=== PATIENT | female | born 1995 ===

== ENCOUNTER 2024-08-24 | Outpatient (REF) | payer OTHER, SELFPAY ==
[2024-08-25 12:43] LABS: Bacterial Vaginosis PCR POSITIVE (Negative); Candida Group PCR NOT DETECTED (Not Detect); Candida glab krusei PCR NOT DETECTED (Not Detect); Trichomonas vaginalis PCR NOT DETECTED (Not Detect)
[2024-08-25 13:15] LABS: CT PCR NOT DETECTED (Not Detect.); NG PCR NOT DETECTED (Not Detect.)
== END 2024-08-24 00:01 | disposition home or self-care (01) ==
LOC: HO.LNP
PROVIDERS: Visit Provider Physician Assistant Medical
DX: N89.8 Other specified noninflammatory disorders of vagina (principal)
CPT/HCPCS: 0352U; 87491; 87591

== ENCOUNTER 2024-08-24 15:46 | Outpatient (REF) | payer OTHER, SELFPAY | END 2024-08-24 15:47 | disposition home or self-care (01) | LOC: HO.LAB 15:46 | DX: N89.8 Other specified noninflammatory disorders of vagina (principal) | CPT/HCPCS: 99202 ==

== ENCOUNTER → 2024-08-24 15:46 | Outpatient (AMB) | payer OTHER, SELFPAY ==
--- NOTE | 2024-08-24 15:51 | AM.OFFWIN_ITS ---
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 Patient Tobacco Use Status: Never used Tobacco Allergies guaifenesin [From Robitussin] Adverse Reaction (Mild, Verified 08/24/24 15:55) Hives Do you need a note to return to daycare/school/sports/work: No HPI HPI Comments History of Present Illness Details This is a 29-year-old female who presented to the walk-in clinic complaining of vaginal discharge and vaginal odor. Patient states this has been going on for several days. She states the vaginal discharge as occasionally white but occasionally yellow to green. She reports her discharge and her vagina are malodorous. Patient is sexually active. She denies any abdominal/pelvic pain, nausea/vomiting/diarrhea, dysuria/hematuria, or urinary frequency/urgency. FOR[facility]LY [facility] Social History Patient Tobacco Use Status: Never used Tobacco Review of Systems Const All systems reviewed & are unremarkable except as noted in HPI and below Reports no additional complaints Eyes Reports no additional complaints ENT Reports no additional complaints Card Reports no additional complaints Resp Reports no additional complaints GI Reports no additional complaints Reports no additional complaints Musc Reports no additional complaints Skin/Breast Reports system reviewed and no additional complaints, except as documented Neuro Reports no additional complaints Psych Reports no additional complaints Endo Reports no additional complaints [place]/Lymph Reports no additional complaints Aller/Immun Reports no additional complaints Physical Exam Const Other: Vital signs reviewed. Constitutional: Non-toxic appearing. No acute distress. Well-developed and well-nourished. HEENT: Normocephalic and atraumatic. Skin: Warm and dry. No rashes or lesions noted. Neck: Full and painless range of motion. No cervical lymphadenopathy. Cardio: Regular rate. No lower extremity edema. No JVD. Pulmonary: No respiratory distress. No accessory muscle usage. Gastrointestinal: Soft, nontender, and nondistended in all 4 quadrants. Musculoskeletal: Normal range of motion in joints throughout the body. No deformity or other signs of injury. Neuro: Alert and oriented x4. Cranial nerves 2-12 grossly intact. No focal deficits appreciated. Psych: Normal mood and affect. Assessment & Plan Assessment & Plan (1) Vaginal discharge: Code(s): N89.8 - Other specified noninflammatory disorders of vagina Plan: 29-year-old female who presented to the walk-in clinic complaining of vaginal discharge and vaginal odor. History appears most consistent with bacterial vaginosis given malodorous discharge, less likely yeast infection given malodoro us discharge in absence of thick, cottage cheese like discharge. Patient has been sexually active with the same partner for the past 1 year; however, she did agree to chlamydia/gonorrhea testing given green-yellow discharge. A vaginal swab for bacterial vaginosis panel was sent and urine was sent for CT/NG. Patient will be called with the results and treated accordingly. Patient verbalized understanding and is agreeable with the plan. Orders: Orders Bacterial Vaginosis Panel Today N89.8 - Other specified noninflammatory disorders of vagina CT NG by PCR Today N89.8 - Other specified noninflammatory disorders of vagina Coding Level of Care Code New Pt Level 3 (58227) Diagnoses Vaginal discharge N89.8
[2024-08-24 15:53] VITALS: BP 118/80; PULSE 64; O2SAT 98; BMI 32.3
== END ==
PROVIDERS: Visit Provider Physician Assistant Medical
DX: N89.8 Other specified noninflammatory disorders of vagina (principal)

== ENCOUNTER 2024-10-23 14:32 | Outpatient (AMB) | payer OTHER, SELFPAY ==
[2024-10-23 14:42] VITALS: BP 100/60; TEMP 36.6; O2SAT 95; BMI 22.7
--- NOTE | 2024-10-23 14:42 | MHC.OFFWIV ---
Intake Vital Signs 10/23/24 14:42 Height 5 ft 4 in Weight 132 lb BMI 22.7 BP 100/60 Blood Pressure Location Rt brachial Position Sitting Temp 98 F Temp Source Oral Pulse Oximetry (%) 95 Oxygen Delivery Method Room Air Intake Visit Reasons: EP concerns with pelvic area Intake Note: Pt is her today c/o vaginal foul odor and vaginal d/c Patient Tobacco Use Status: Never used Tobacco Allergies guaifenesin [From Robitussin] Adverse Reaction (Mild, Verified 10/23/24 14:43) Hives HPI HPI Comments History of Present Illness Details She presents to office with brandy for pelvic complaint She states vaginal odors and was given a medication; + BV and given Flagyl Took medicine completely and symptoms went away She presents because she feels like 1 week ago it started again She said minimal discharge with it; white No dysuria, frequency or urgency Denies chance of She uses a special soap in shower and unsure if this is causing it PFSH Social History Patient Tobacco Use Status: Never used Tobacco Review of Systems Const Denies chills and Denies fever(s) Card Denies chest pain Resp Denies cough GI Denies abdominal pain Denies dysuria, Reports vaginal discharge, Reports vaginal dryness, Reports vaginal odor and Denies vaginal pruritus Musc Denies myalgias Skin/Breast Denies rash Physical Exam Vital Signs: Last Vital Signs Temp 98 F 10/23/24 14:42 BP 100/60 10/23/24 14:42 Pulse Ox 95 10/23/24 14:42 Oxygen Delivery Method Room Air 10/23/24 14:42 BMI result Body Mass Index 22.7 General: Non-toxic, NAD. Speaking full sentences. Skin: Warm dry throughout. Respiratory: No respiratory distress Cardiac: RRR. No murmur Abdominal:No abdominal or CVAT on exam MSK: Full ROM extremities. Neurology: Alert. No aphasia or facial droop. Gait without abnormality Psych: Good mood and affect Assessment & Plan Assessment & Plan (1) Vaginal odor: Code(s): N89.8 - Other specified noninflammatory disorders of vagina Plan: Swab obtained and sent to lab She is in relationship and no concerns STD Will call with results and treat appropriately Pt gave verbal understanding and has no additional questions Orders: Orders Bacterial Vaginosis Panel Today N89.8 - Other specified noninflammatory disorders of vagina Coding Level of Care Code Est Pt Level 3 (46291) Diagnoses Vaginal odor N89.8
== END 2024-10-23 16:07 | disposition home or self-care (01) ==
PROVIDERS: Visit Provider Physician Assistant
DX: N89.8 Other specified noninflammatory disorders of vagina (principal)

== ENCOUNTER → 2024-10-23 14:32 | Outpatient (BNVA) | payer OTHER, SELFPAY | PROVIDERS: Visit Provider Physician Assistant | DX: N89.8 Other specified noninflammatory disorders of vagina (principal) | CPT/HCPCS: 99212 ==

== ENCOUNTER 2024-10-24 07:43 | Outpatient (REF) | payer OTHER, SELFPAY ==
[2024-10-24 11:36] LABS: Bacterial Vaginosis PCR POSITIVE (Negative); Candida Group PCR NOT DETECTED (Not Detect); Candida glab krusei PCR NOT DETECTED (Not Detect); Trichomonas vaginalis PCR NOT DETECTED (Not Detect)
== END 2024-10-24 07:44 | disposition home or self-care (01) ==
LOC: HO.LAB 07:43
PROVIDERS: Visit Provider Physician Assistant
DX: N89.8 Other specified noninflammatory disorders of vagina (principal)
CPT/HCPCS: 81515

== ENCOUNTER 2025-08-29 06:14 | Outpatient (REF) | payer OTHER, SELFPAY ==
--- OUTSIDE RECORDS SUMMARY | 2025-08-29 06:20 | XMS_ITS | Clinical Summary ---
Author Organization [facility] Address [address] [facility] [place] [address] Care Team Providers Care Eye Care Professional Name Role Phone Geraldine Mattue MD Primary Care Provider [phone] Allergies Active Allergy Reactions Criticality Noted Date Comments [place] Hives Medium 12/14/2015 Black olives Guaifenesin Rash 01/11/2014 Medications ethynodiol-ethinyl estradiol (KELNOR) 1-35 mg-mcg TabletIndications:E ncounter for initial prescription of contraceptives Take 1 tablet by mouth daily. 90 tablet 1 7 Active cholecalciferol, Vitamin D3, (CHOLECALCIFEROL, VITAMIN D3,) 2,000 unit Capsule Take by mouth. 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 First seizure was in 2005 and last was in 2006. Patient has been off anticonvulsants since the fall of 2008. 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 Last seen by Dr.Kossak velez 2011 Per pt thinks it was stress related while she was in [place] and has been doing well ANGELICA Lisa at neurology 02/22/2017- normal EEG and MRI of the brain- d/c ; f/u prn Resolved Problems Problem Noted Date Diagnosed Date Resolved Date Constipation 04/04/2012 02/02/2016 Orthostatic syncope 02/01/2012 02/02/20 16 constipation 10/28/2009 04/04/2012 Immunizations Immunization Administration Dates Next Due DTP 08/17/1995, 5,1994,07/14 DTaP 05/29/1999 HIB PRP-T Conjugate (ActHIB, Hiberix, OmniHib) 08/17/1995,1994,1994,07/14 HPV, Quadrivalent (Gardasil) 01/20/2012,09/21/20 11,07/20/2011 Hepatitis B, Unspecified Formulation 11/1994,1994,1994,06/02,1994 MMR Vaccine LIVE 05/29/1999,08/17/1995 Meningococcal Acwy, Unspecif ied Formulation 07/20/2011,09/11/2007 Polio Oral Trivalent LIVE (Orimune) 05/17,1994,1994,07/14 Tdap (Adacel, Boostrix) 02/02/2016,05/24/2006 Varicella LIVE (Varivax) 07/20/2011,06/07/2005 Family History Medical History Relation Comments Hyperlipidemia Brother Hyperlipidemia Maternal Grandmother Hypertension Maternal Grandmother Migraines Maternal Grandmother Anemia Mother Migraines Paternal Grandmother Relation Status Comments Brother Father Alive Maternal Grandmother Mother Alive Paternal Grandmother Social History Tobacco Use Types Packs/Day Years Used Date Smoking Tobacco: Never Alcohol Use Standard Drinks/Week Comments Yes 0 (1 standard drink = 0.6 oz pur e alcohol) occ Comments No Sex and Gender Information Value Date Recorded Sex Assigned at Not on file Legal Sex Female 6:23 AM EST Gender Identity Not on file Sexual Orientation Not on file Last Filed Vital Signs Vital Sign Reading Time Taken Comments Blood Pressure 108/68 02/22/2017 8:50 AM EDT Pulse 72 02/22/2017 8:50 AM EDT Temperature 36.5 C (97.7 F) 12/05/2016 3:23 PM EST Respiratory Rate 16 01/03/2012 3:21 PM EDT Oxygen Saturation 94% 12/05/2016 3:23 PM EST Inhaled Oxygen Concentration - - Weight 54 kg (119 lb) 02/22/2017 8:50 AM EDT Height 162.6 cm (5' 4 ) 02/22/2017 8:50 AM EDT Body Mass Index 20.43 02/22/2017 8:50 AM EDT Plan of Treatment Health Maintenance Due Date Last Done Comments HPV test 2024 PAP Smear 2024 02/02/2016 Covid-19 Vaccine (1 - 2024-2 6 season) 2025 Influenza (Flu) vaccine (1 o f 1 - Influenza standard series) 06/17/2025 Tetanus/Diphtheria/Pertussis Vaccines (8 - Td or Tdap) 02/01/2026 02/02/2016, 05/24/2006, 05/29/1999, Additional history exists Hepatitis B vaccine (0-59 yr s) and Risk Completed 03/18/1995, 1994, 1994, Additional history exists HPV vaccine Completed 01/20/2012, 120 03/2011, 07/20/2011 HIV screen Completed 02/24/2016 Hepatitis C Screening Completed 02/24/2016 Procedures Procedure Name Priority Date/Time Associated Diagnosis Comments HIV SCREEN, 4TH GENERATION PERFORMABLE Routine 02/24/2016 12:15 PM EDT Preventative health care Routine screening for STI (sexually transmitted infection) HEPATITIS C ANTIBODY Routine 02/24/2016 12:15 PM EDT Preventative health care Routine screening for STI (sexually transmitted infection) MUNICIPAL SERVICES MANAGER CYTOLOGY FINAL REPORT Routine 02/02/2016 10:48 AM EDT from Last 3 Months or Most Recently Relevant to Health Maintenance Results * Hepatitis C Antibody (02/24/2016 12:15 PM EDT) Hepatitis C Antibody Negative Negative [facility] Blood specimen (specimen) 02/24/2016 12:15 PM EDT 02/24/2016 7:26 PM EDT Narrative Resulting Agency Comment Spec In Lab Geraldine Matute MD CHEMISTRY ORDERABLES Final Re sult Performing Organization Address [facility] Co de Phone Number [facility] [place] [address] * HIV Screen, 4th Generation (02/24/2016 12:15 PM EDT) HIV Ab/Ag Screen Negative Negative [facility] Comment: This 4th Generation HIV test screens for the presence of the HIV-1 p24 antigen as well as antibodies reactive against HIV-1 and HIV-2. A negative screen does not rule out an acute HIV infection. If acute HIV infection is suspected, testing should be repeated in 2 - 3 weeks or HIV nucleic acid testing performed. Blood specimen (specimen) 02/24/2016 12:15 PM EDT 02/24/2016 7:26 PM EDT Narrative Resulting Agency Comment Spec In Lab Geraldine Matute MD CHEMISTRY ORDERABLES Final Re sult Performing Organization Address [facility] Co de Phone Number [facility] [place] [address] * Photogrammetric Surveyor Cytology Final Report (02/02/2016 10:48 AM EDT) Photogrammetric Surveyor Cytology Final Report [id number] Location: [facility] The signing pathologist has (i) examined the relevant preparation(s) for the specimen(s) and (ii) rendered or confirmed the diagnosis(es). . Photogrammetric Surveyor Final DIAGNOSIS NORMAL Negative for Intraepithelial Lesion or Malignancy (NILM). 02/07/16 Screened by: SPEEDY 02/07/16 Verified by: Randy FLORES(ASCP), Tracy Fisher Hospitalist Nocturnist Physician HPV RESULTS Not applicable (HPV testing either not indicated or ordered). STATEMENT OF ADEQUACY Specimen submitted is satisfactory. Endocervical component present. CLINICAL INFORMATION HPV Option: Reflex HPV Preparation: Liquid based Pap Specimen Source: Cervical/Endocervi afshin LMP: 01/12/16 Hormones?: No Hysterectomy?: No ?: No ?: No I.U.D.?: No Pelvic Radiation: No Prior MUNICIPAL SERVICES MANAGER Therapy?: No Hist Abnl Pap/Biopsy?: No Hist of HPV Vaccine?: Yes Hist of Smoking?: No Hist of LUCRETIA exposure?: No ICD Diagnosis: Z12.4 Encounter for screening for malignant neoplasm of cervix Clinical Data, Significant Therapy and Clinical Impression : _ This Pap Test has been evaluated with the assistance of the [employer] Pap Test Imaging System. Note: The Pap test is a screening test for cervical cancer with an inherent false-negative rate dependent upon several variables. For further information please contact the [facility] Laboratory. Reference: Raymond ANG. Patient Coordinator Front Desk of Pap Smear Results. In: Bryan BS, Bertram HH, ed. The Pap Smear. [place]: Juan, 2002: 71-77. [facility] 02/02/2016 10:4 8 AM EDT us Geraldine Matute MD PATHOLOGY/CYTOLOGY ORDERABLES Final Result [facility] [place] [address] from Last 3 Months or Most Recently Relevant to Health Maintenance Care Teams Eye Care Professional Relationship Specialty Start Date End Date Geraldine Matute MD [facility] [place] [facility] [place] [address] PCP - General Family Medicine 08/02/16
[2025-08-29 10:31] LABS: MANUAL DIFF FLAG NO
[2025-08-29 10:43] LABS: Hematocrit 42.8 % (37.0-47.0); Hemoglobin 14.5 g/dl (12.0-16.0); Imm Gran Abs Auto 0.01 X10*3/uL (0.00-0.03); Imm Gran Pct Auto 0.3 % (0.0-0.4); Lymphocytes Absolute Auto 1.4 X10*3/uL (1.2-4.9); Mean Corpuscular HGB Conc 33.9 g/dl (31.0-35.0); Mean Corpuscular Hemoglobin 31.3 pg (27.0-33.0); Mean Corpuscular Volume 92.4 fL (80.0-98.0); NRBC Abs Auto 0.000 X10*3/uL (0.0-0.012); NRBC Pct Auto 0.0 /100WBC (0.0-0.2); Platelet Count 234 X10*3/uL (160-400); Red Blood Count 4.63 X10*6/uL (4.20-5.50); White Blood Count 3.3 X10*3/uL (4.8-10.8)
[2025-08-29 11:58] LABS: Alanine Aminotransferase 22 U/L (0-31); Albumin Level 4.9 g/dL (3.5-5.0); Alkaline Phosphatase 57 U/L (39-117); Anion Gap 11 (12-20); Aspartate Amino Transferase 21 U/L (5-31); Blood Urea Nitrogen 11 mg/dL (9-16); Calcium 8.8 mg/dL (8.4-10.2); Carbon Dioxide 25 mmol/L (22-29); Chloride 105 mmol/L (96-108); Estimated Glomerular Filt Rate > 60; Potassium 4.2 mmol/L (3.3-5.1); Sodium 137 mmol/L (135-145); Total Protein 7.0 g/dL (6.5-8.0)
== END 2025-08-29 06:15 | disposition home or self-care (01) ==
LOC: HO.HMGCLDS 06:14
PROVIDERS: Visit Provider Psychiatry & Neurology Neurology
DX: Z51.81 Encounter for therapeutic drug level monitoring (principal); G40.211 Localization-related (focal) (partial) symptomatic epilepsy and epileptic syndromes with complex partial seizures, intractable, with status epilepticus
CPT/HCPCS: 36415; 80053; 80339; 82306; 85025

== ENCOUNTER 2025-09-10 15:47 | Outpatient (AMB) | payer OTHER, SELFPAY ==
[2025-09-10 15:50] VITALS: BP 112/74; PULSE 75; TEMP 36.8; O2SAT 96; BMI 22.5
--- NOTE | 2025-09-10 15:50 | AM.OFFWIN_ITS ---
Intake Vital Signs 09/10/25 15:50 Height 5 ft 4 in Weight 131 lb BMI 22.5 BP 112/74 Blood Pressure Location Lt brachial Position Sitting Pulse 75 Pulse Source Pulse Oximeter Temp 98.3 F Temp Source Oral Pulse Oximetry (%) 96 Oxygen Delivery Method Room Air Intake Visit Reasons: EP-lt ear pain Intake Note: pt presents with left ear discomfort on/off for a while, states she feels like something is stuck Patient Tobacco Use Status: Never used Tobacco Allergies guaifenesin (From Robitussin) Adverse Reaction (Mild, Verified 09/10/25 16:05) Hives Do you need a note to return to daycare/school/sports/work: Yes HPI HPI Comments History of Present Illness Details History - The patient is a 30 year old individua l presenting with left ear pain and discomfort. - The patient reports a throbbing sensat ion in the left ear, exacerbated by head movement and temperature changes. - The patient denies any discharge, pus, or blood from the ear. - The patient has a history of ear issue s, with the left ear sometimes feeling like it sinks in and out. - The patient denies any fever, congesti on, CP, SOB, MCKAY, dizziness, or cough. Physical Exam General: Cooperative, healthy appearing, comfortable, no acute distress and well developed Head: Normal to inspection Ears: External ears normal bilaterally. No tragus or mastoid tenderness noted. Cerumen noted in the right canal. Left ear canal is clear but significantly red. TM's not visualized. Face and sinus: Normal facial exam. No TTP of the sinuses. Neck: Normal visual inspection. Full ROM. No lymphadenopathy noted. Respiratory: Normal respiratory effort and able to speak in complete sentences. Clear to auscultation bilaterally. No w/r/r noted. Cardiac: RRR, no m/r/g noted. Normal S1 and S2 noted. Skin: No rashes or lesions noted Neuro: Patient oriented x3 Patient was informed and verbally consented to the use of an ambient scribe for clinic note documentation during this visit. PFSH Social History Patient Tobacco Use Status: Never used Tobacco Review of Systems Const All systems reviewed & are unremarkable except as noted in HPI and below Physical Exam Vital Signs: Last Vital Signs Temp 98.3 F 09/10/25 15:50 Pulse 75 09/10/25 15:50 BP 112/74 09/10/25 15:50 Pulse Ox 96 09/10/25 15:50 Oxygen Delivery Method Room Air 09/10/25 15:50 BMI result Body Mass Index 22.5 Assessment & Plan Assessment & Plan (1) Left ear pain: Code(s): H92.02 - Otalgia, left ear Plan Most likely OE vs OM vs congestion Plan - Prescribed ear drops containing an antibiotic and steroid to address potential inflammation in the left ear. - Advised to avoid water exposure in the ear and refrain from using Q-tips. - Recommended vpxz-[id number] analgesics such as Tylenol or Motrin for pain management. - Instructed to monitor symptoms and return if pain worsens or additional symptoms develop. Medications: New fmkcwxop-[id number]-RN 3.5-10,000-1 mg/mL-unit/mL-% 4 drps otic (ear) left QID 10 mL 0RF 7 days Coding Level of Care Code Est Pt Level 3 (77176) Diagnoses Left ear pain H92.02
--- OUTSIDE RECORDS SUMMARY | 2025-09-10 19:19 | XMS_ITS | Clinical Summary ---
Author Organization [facility] Address One [facility] [place] [address] Care Team Providers Care Computer Peripheral Equipment Operator Name Role Phone Geraldine Matute MD Primary Care Provider [phone] Allergies Active Allergy Reactions Criticality Noted Date Comments [place] Hives Medium 12/14/2015 Black olives Guaifenesin Rash [...] of 2008. 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 Last seen by Dr.Kossak velez 2011 Per pt thinks it was stress related while she was in [place] and has been doing well ANGELICA Lisa [...] Routine screening for STI (sexually transmitted infection) LEVEL VIAL GRINDER CYTOLOGY FINAL REPORT Routine 02/02/2016 10:48 AM EDT from Last 3 Months or Most Recently Relevant to Health Maintenance Results * Hepatitis C Antibody (02/24/2016 12:15 PM EDT) Hepatitis C Antibody Negative Negative [facility] Blood specimen (specimen) 02/24/2016 12:15 PM EDT 02/24/2016 7:26 PM EDT Narrative Resulting Agency Comment Spec In Lab Geraldine Matute MD CHEMISTRY ORDERABLES Final Re sult Performing Organization Address [facility] Co de Phone Number [facility] [place] [address] * HIV Screen, 4th Generation (02/24/2016 12:15 PM EDT) HIV Ab/Ag Screen Negative Negative [facility] Comment: This 4th Generation HIV [...] ORDERABLES Final Re sult Performing Organization Address [facility] Co de Phone Number [facility] [place] [address] * Supervisor Whipped Topping Cytology Final Report (02/02/2016 10:48 AM EDT) Supervisor Whipped Topping Cytology Final Report [id number] Location: [facility] The signing pathologist has (i) examined the relevant preparation(s) for the specimen(s) and (ii) rendered or confirmed the diagnosis(es). . Supervisor Whipped Topping Final DIAGNOSIS NORMAL Negative for Intraepithelial Lesion or Malignancy (NILM). 02/07/16 Screened by: SPEEDY 02/07/16 Verified by: Randy FLORES(ASCP), Tracy Fisher Commissioned Defence [employer] Officer HPV RESULTS Not applicable (HPV testing either not indicated or ordered). STATEMENT OF ADEQUACY Specimen submitted is satisfactory. Endocervical component present. CLINICAL INFORMATION HPV Option: Reflex HPV Preparation: Liquid based Pap Specimen Source: Cervical/Endocervi afshin LMP: 01/12/16 Hormones?: No Hysterectomy?: No ?: No ?: No I.U.D.?: No Pelvic Radiation: No Prior LEVEL VIAL GRINDER Therapy?: No Hist Abnl Pap/Biopsy?: No Hist of HPV Vaccine?: Yes Hist of Smoking?: No Hist of LUCRETIA exposure?: No ICD Diagnosis: Z12.4 Encounter for screening for malignant neoplasm of cervix Clinical Data, Significant Therapy and Clinical Impression : _ This Pap Test has been evaluated with the assistance of the [employer] Pap Test Imaging System. Note: The Pap test is a screening test for cervical cancer with an inherent false-negative rate dependent upon several variables. For further information please contact the [facility] Laboratory. Reference: Raymond ANG. Principal Gifts Officer of Pap Smear Results. In: Bryan BS, Bertram HH, ed. The Pap Smear. [place]: Juan, 2002: 71-77. [facility] 02/02/2016 10:4 8 AM EDT us Geraldine Matute MD PATHOLOGY/CYTOLOGY ORDERABLES Final Result [facility] [place] [address] from Last 3 Months or Most Recently Relevant to Health Maintenance Care Teams Computer Peripheral Equipment Operator Relationship Specialty Start Date End Date Geraldine Matute MD [facility] [place] [address] PCP - General Family Medicine 08/02/16
== END 2025-09-10 16:16 | disposition home or self-care (01) ==
PROVIDERS: Visit Provider Physician Assistant Medical
DX: H92.02 Otalgia, left ear (principal)

== ENCOUNTER 2025-10-16 12:54 | Outpatient (AMB) | payer OTHER, SELFPAY ==
--- NOTE | 2025-10-16 12:58 | A.OFFPC_ITS ---
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, med review Front Office Coordinator Required: No Accompanied by: fiance Allergies guaifenesin (From Robitussin) Adverse Reaction (Mild, Verified 10/16/25 13:01) Hives Medication List - Last Reconciled 10/16/25 by Maru Ghosh MD folic acid 1 mg PO DAILY oxcarbazepine 600 mg PO BID oxcarbazepine 150 mg PO BID Tobacco use date assessed: 10/16/25 Dental Screening Dental Screen Date: 10/16/25 Did you have a dental visit in the last 12 months?: Yes Did you have a dental problem in the last 6 months where you did not have access to dental care?: No Was dental information given to patient?: Patient has dentist HPI HPI Comments History of Present Illness Details The patient is a 30 year old female with PMH of epilepsy, presenting for establishment of primary care after recently moving from [place]. The patient has a history of epilepsy, which is managed by a neurologist in [place], [place]. Her medication regimen includes oxcarbazepine and folic acid. The last seizure activity occurred approximately 6 months ago, described as three minor seizures, which prompted an increase in her medication dosage by her neurologist. The patient has no personal history of surgeries, hypertension, or diabetes. She reports a significant fear of needles, with a history of hyperventilating during blood draws. The patient's family history is significant for ovarian cancer in her mother, maternal grandmother, and maternal great-grandmother. Her mother also had a history of possible leukemia years ago that required a blood transfusion. Diabet es and high blood pressure are present on her maternal grandmother's side of the family. [facility] Family History (Updated 10/16/25 @ 13:08 by Zayda Henry CMA) Mother Ovarian ca Social History Housing: House Patient Tobacco Use Status: Never used Tobacco e-Cigarette/Vaping Use: Never Used service: No Current occupational status: employed Current occupation: Inside Cognitive needs: No Hearing needs: No Vision needs: Yes (glasses) Questionnaire PHQ-9 Over the last 2 weeks, how often have you been bothered by any of the following problems? 1. Little interest or pleasure in doing things: not at all 2. Feeling down, depressed, or hopeless: not at all 3. Trouble falling or staying asleep, or sleeping too much: not at all 4. Feeling tired or having little energy: not at all 5. Poor appetite or overeating: not at all 6. Feeling bad about yourself - or that you are a failure or have let yourself or your family down: not at all 7. Trouble concentrating on things, such as reading the newspaper or watching television: not at all 8. Moving or speaking so slowly that other people could have noticed. Or the opposite - being so fidgety or restless that you have been moving around a lot more than usual: not at all 9. Thoughts that you would be better off or of hurting yourself in some way: not at all Total score: 0 Depression Screening Interpretation: Negative Depression Screening Done: Yes Source: Developed by Drs. Socrates Alvarado, Dominique Cunningham, Stephane Sherwood and colleagues, with an educational zarina from [employer]. Thrive Questionnaire Date Thrive assessed: 10/16/25 I am a: Patient What is your living situation today?: I have a steady place to live Within the past 12 months, did the food you bought not last and you didn't have the money to get more?: I choose not to answer this question Within the past 12 months, did you worry whether your food would run out before you got money to buy more?: I choose not to answer this question Do you have trouble paying for medicines?: No Do you have trouble getting transportation to medical appointments?: I choose not to answer this question Do you have trouble paying your heating and electricity bill?: I choose not to answer this question Do you have trouble taking care of your child, family member or friend?: I choose not to answer this question Do you have trouble with day-to-day activities such as bathing, preparing meals, shopping, managing finances, etc.?: I choose not to answer this question Are you currently unemployed and looking for a job?: No Are you interested in more education?: Yes Please select the resources that you would like help with: None Currently or been in a relationship where the following occur: I choose not to answer THRIVE Score: 0 AUDIT C Alcohol Use Questionnaire (AUDIT-C) 1. How often do you have a drink containing alcohol?: Never 3. How often do you have six or more drinks on one occasion?: Never Total Score: 0 BENJAMIN-7 AMB Questionnaire BENJAMIN-7 Date BENJAMIN - 7 assessed: 10/16/25 Feeling nervous, anxious, or on edge: 0 = Not at all Not being able to stop or control worryin = Not at all Worrying too much about different things: 0 = Not at all Trouble relaxin = Not at all Being so restless that it is hard to sit still: 0 = Not at all Becoming easily annoyed or irritable: 0 = Not at all Feeling afraid as if something awful might happen: 0 = Not at all Total BENJAMIN-7 score (0-4 normal; 5-9 mild; 10-14 moderate; 15-21 severe): 0 Source: Developed by Drs. Socrates Alvarado, Dominique Cunningham, Stephane Sherwood and colleagues, with an educational zarina from [employer]. Physical exam (Primary Care) Vital Signs: Last Vital Signs Temp 98.3 F 10/16/25 13:02 Pulse 87 10/16/25 13:02 Resp 16 10/16/25 13:02 BP 116/60 10/16/25 13:02 Pulse Ox 99 10/16/25 13:02 Oxygen Delivery Method Room Air 10/16/25 13:02 BMI result Body Mass Index 22.3 Tobacco/Smoking Status: Tobacco use Status Tobacco use date assessed 10/16/25 10/16/25 13:10 Patient Tobacco Use Status Never used Tobacco 10/16/25 12:58 e-Cigarette/Vaping Use Never Used 10/16/25 13:10 PHQ-9: PHQ-9 Score PHQ-9: Total score 0 10/16/25 13:10 Depression Screening Interpretation: Negative Thrive Assessment: Date of Thrive Assessment Date Thrive assessed 10/16/25 10/16/25 13:10 Currently or been in a relationship where the following occur: I choose not to answer Coding Level of Care Code New Pt Level 4 (56651) Diagnoses Encounter to establish care Z76.89 Epilepsy G40.909 Family history of ovarian cancer Z80.41 Time Spent (min) 30 Assessment & Plan Assessment & Plan (1) Encounter to establish care: Code(s): Z76.89 - Persons encountering health services in other specified circumstances Category: Medical Plan: Patient's Past, surgical, medical, family history was reviewed. General labs including CBC, CMP, Lipid panel, TSH, A1C were ordered. APRON MAN referral ordered. Medications refilled. Recent labs, imaging, documents, chart reviewed. - Rest of general health maintenance will be addressed during PE. (2) Epilepsy: Code(s): G40.909 - Epilepsy, unspecified, not intractable, without status epilepticus Category: Medical Plan: Follows with Neurology. Well controlled with Oxcarbamazepine. Last seizure around 6 months ago. - The patient will continue her current medications, oxcarbazepine and folic acid, as prescribed by her neurologist. - Management of her seizure disorder will remain with her neurologist. (3) Family history of ovarian cancer: Code(s): Z80.41 - Family history of malignant neoplasm of ovary Category: Medical Plan: - The patient's significant family history of ovarian cancer will be addressed through the referral to an [employer] WORKER for further evaluation and management discussion. Plan I welcomed the patient to the practice and outlined the plan for establishing care. I explained the rationale for ordering baseline laboratory studies, including a complete blood count, metabolic panel, A1c, lipid profile, thyroid function, vitamin D, hepatitis C, and HIV screening. The patient expressed a fear of needles, and I informed her that the labs can be drawn at her convenience, as long as it is done before the next visit. I advised that she should be fasting for some of the tests. I informed the patient that I will place a referral for her to see an [employer] WORKER. I explained that the clinic will call her with her lab results, regardless of whether they are normal or abnormal. We scheduled a follow-up appointment in two months, with a plan for annual follow-ups thereafter. Orders: Orders Comprehensive [place]. Panel Fast Today Z00.00 - Encounter for general adult medical examination without abnormal findings Hemoglobin A1c Today Z00.00 - Encounter for general adult medical examination without abnormal findings Complete Blood Count no Diff Today Z00.00 - Encounter for general adult medical examination without abnormal findings HIV Ab/Ag Today Z00.00 - Encounter for general adult medical examination without abnormal findings Hepatitis C Antibody Reflex Today Z.00 - Encounter for general adult medical examination without abnormal findings TSH reflex Free T4 Today Z. - Encounter for general adult medical examination without abnormal findings Vitamin D 25-OH Total Today Z00.00 - Encounter for general adult medical examination without abnormal findings Lipid Panel Today Z00.00 - Encounter for general adult medical examination without abnormal findings Referrals [facility] [employer] WORK[facility] Referral Z00.00 - Encounter for general adult medical examination without abnormal findings
[2025-10-16 13:02] VITALS: BP 116/60; PULSE 87; RESP 16; TEMP 36.8; O2SAT 99; BMI 22.3
--- OUTSIDE RECORDS SUMMARY | 2025-10-16 14:29 | XMS_ITS | Encounter Summary ---
Author Organization [facility] Address [address] [place] [address] Care Team Providers Care Concrete Spreader Name Role Phone Melissa Tirado MD Primary Care Provider [phone] Encounter Details Date Type Department Care Team (Late st Contact Info) Description 08/09/2025 Telephone [facility] Neurology at [address] Neurology at [address] [address] Mom, [place], [place] Social History Tobacco Use Types Packs/Day Years Used Date Smoking Tobacco: Never Smokeless Tobacco: Never Alcohol Use Standard Drinks/Week Comments Not Currently 0 (1 standard drink = 0.6 oz pur e alcohol) very rare AUDIT-C Answer Date Recorded Frequency of Alcohol Consumption Never 07/14/2019 Average Number of Drinks Not on file 019 Frequency of Binge Drinking Not on file 06/18 Comments Unknown Sex and Gender Information Value Date Recorded Sex Assigned at Female 07/14/2019 6:43 PM EDT Legal Sex Female 5:01 PM EDT Gender Identity Female 07/14/2019 6:43 PM EDT Sexual Orientation Not on file documented as of this encounter Plan of Treatment Upcoming Encounters Date Type Department Care Team (Late st Contact Info) Description 04/21/2026 12:30 PM EDT Office Visit [facility] at [facility], [address] [facility] [address] [place] [address] Alona Tapia MD [address] [place] [address] In Person with Physician documented as of this encounter Visit Diagnoses Not on filedocumented in this encounter Care Teams Concrete Spreader Relationship Specialty Start Date End Date Melissa Tirado MD [address] [place] [phone] PCP - General Internal Medicine 07/14/19 documented as of this encounter
--- OUTSIDE RECORDS SUMMARY | 2025-10-16 14:29 | XMS_ITS | Clinical Summary ---
Author Organization [facility] Address [address] [place] [address] Care Team Providers Care Community Health Representative Name Role Phone Melissa Tirado MD Primary Care Provider [phone] Allergies Active Allergy Reactions Criticality Noted Date Comments Guaifenesin Rash Low 01/11/2014 Medications folic acid (FOLVITE) 1 MG tablet Take 1 tablet (1 mg total) by mouth in the morning. 90 tablet 3 08/02/2025 Active OXcarbazepine (TRILEPTAL) 600 MG tablet Take 1 tablet (600 mg total) by mouth in the morning and 1 tablet (600 mg total) before bedtime. Take in addition to 150 mg twice a day. 180 tablet 3 09/08/2025 Active OXcarbazepine (TRILEPTAL) 150 MG tablet Take 1 tablet (150 mg total) by mouth in the morning and 1 tablet (150 mg total) before bedtime. Take in addition to 600 mg twice a day. 180 tablet 3 09/08/2025 Active Active Problems Problem Noted Date Diagnosed Date Partial symptomatic epilepsy with complex partial seizures, intractable, with status epilepticus 02/05/2020 Anxiety 07/14/2019 Resolved Problems Problem Noted Date Diagnosed Date Resolved Date Hyponatremia 07/15/2019 07/15/2019 Encounters Date Type Department Care Team Description 09/08/2025 Orders Only [facility] at [address] [facility] at [address] [address] Alona Tapia MD 09/07/2025 [facility] Department of Neurology [facility] Neurology [address] [place] [address] Alona Tapia MD 09/03/2025 Telephone [facility] at [address] [facility] at [address] [address] Alona Tapia MD Results 08/09/2025 Telephone [facility] at [address] Neurology at [address] [address] [place], [place] 08/02/2025 4:00 PM EDT Telemedicine [facility] at [address] Neurology at [address] [address] Alona Tapia MD Partial symptomatic epilepsy with complex partial seizures, intractable, with status epilepticus ([facility]) (Primary Dx) from Last 3 Months Social History Tobacco Use Types Packs/Day Years [...] PM EDT Sexual Orientation Not on file Last Filed Vital Signs Vital Sign Reading Time Taken Comments Blood Pressure 108/66 05/31/2024 1:24 PM EDT Pulse 71 05/31/2024 1:24 PM EDT Temperature 36.8 C (98.3 F) 10/18/2019 12:12 PM EST Respiratory Rate 16 10/18/2019 12:12 PM EST Oxygen Saturation 98% 10/18/2019 12:12 PM EST Inhaled Oxygen Concentration - - Weight 57.6 kg (127 lb) 10/17/2019 8:35 AM EST Height 162.6 cm (5' 4 ) 10/17/2019 8:35 AM EST Body Mass Index 21.8 10/17/2019 8:35 AM EST Plan of Treatment Upcoming Encounters Date Type Department Care Team (Late st Contact Info) Description 04/21/2026 12:30 PM EDT Office Visit [facility] at [facility], [address] [place] [address] Road [facility] at [address] [address] Alona Tapia MD [address] [place] [address] In Person with Physician Health Maintenance Due Date Last Done Comments Depression Screening 2006 Hepatitis C Screening 2012 Pap Smear 2015 Cervical Cancer Screening 2024 HPV/Cotest 2024 COVID-19 Vaccine (2 - season) 2025 01/26/2021 Influenza Vaccine (#1) 2025 DTaP,Tdap,and Td Vaccines (8 - Td or Tdap) 02/01/2026 02/02/2016, 05/24/2006, 05/29/1999, Additional history exists Blood Pressure 05/31/2028 05/31/2024 Meningococcal Vaccines Completed 07/20/2011, 2006 Meningococcal B Vaccines Aged Out No longer eligible based on patient's age to complete this topic Pneumococcal Vaccine Aged Out No long er eligible based on patient's age to complete this topic Insurance Advance Directives * Full Code (Latest Code Status on File) Date Activated Date Inactivated Comments 10/17/2019 6:54 PM * Full Code Date Activated Date Inactivated Comments 07/14/2019 11:25 PM 10/17/2019 6:54 PM Care Teams Community Health Representative Relationship Specialty Start Date End Date Melissa Tirado MD [address] [place] [phone] PCP - General Internal Medicine 07/14/19
--- OUTSIDE RECORDS SUMMARY | 2025-10-16 14:29 | XMS_ITS | Encounter Summary ---
Author Organization [facility] Address [address] [place] [address] Care Team Providers Care Financial Developer Name Role Phone Melissa Tirado MD Primary Care Provider [phone] Reason for Visit * Reason Onset Date Comments Medication Refill 09/07/2025 Encounter Details Date Type Department Care Team (Late st Contact Info) Description 09/07/2025 Refill [place] Department of Neurology [facility] Neurology [address] [place] [address] Alona Tapia MD [address] [place] [address] Social History Tobacco Use Types Packs/Day Years [...] PM EDT Office Visit [facility], [address] [place] [address] Road [facility] at [address] [address] Alona Tapia MD [address] [place] [address] In Person with Physician documented as of this encounter Visit Diagnoses Not on filedocumented in this encounter Care Teams Financial Developer Relationship Specialty Start Date End Date Melissa Tirado MD [address] [place] [address] [address] [place] [phone] PCP - General Internal Medicine 07/14/19 documented as of this encounter
--- OUTSIDE RECORDS SUMMARY | 2025-10-16 14:29 | XMS_ITS | Clinical Summary ---
Author Organization [facility] Address [address] [facility] [place] [address] Care Team Providers Care Inside Tester Name Role Phone Geraldine Matute MD Primary Care Provider Allergies Active Allergy Reactions Criticality Noted Date Comments [place] Hives Medium 12/14/2015 Black olives Guaifenesin Rash [...] of 2008. 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 Last seen by Dr.Kossak velez 2011 Per pt thinks it was stress related while she was in [place] and has been doing well ANGELICA Lisa [...] Routine screening for STI (sexually transmitted infection) [facility] CYTOLOGY FINAL REPORT Routine 02/02/2016 10:48 AM EDT from Last 3 Months or Most Recently Relevant to Health Maintenance Results * Hepatitis C Antibody (02/24/2016 12:15 PM EDT) Hepatitis C Antibody Negative Negative [facility] Blood specimen (specimen) 02/24/2016 12:15 PM EDT 02/24/2016 7:26 PM EDT Narrative Resulting Agency Comment Spec In Lab Geraldine Matute MD CHEMISTRY ORDERABLES Final Re sult Performing Organization Address [facility] Co de Phone Number [facility] [place] [address] * HIV Screen, 4th Generation (02/24/2016 12:15 PM EDT) HIV Ab/Ag Screen Negative Negative [facility] Comment: This 4th Generation HIV [...] ORDERABLES Final Re sult Performing Organization Address [facility] Co de Phone Number [facility] [place] [address] * Braided Rug Maker Cytology Final Report (02/02/2016 10:48 AM EDT) Braided Rug Maker Cytology Final Report [id number] Location: [facility] The signing pathologist has (i) examined the relevant preparation(s) for the specimen(s) and (ii) rendered or confirmed the diagnosis(es). . Braided Rug Maker Final DIAGNOSIS NORMAL Negative for Intraepithelial Lesion or Malignancy (NILM). 02/07/16 Screened by: SPEEDY 02/07/16 Verified by: Randy FLORES(ASCP), Tracy Fisher Manager Freelance HPV RESULTS Not applicable (HPV testing either not indicated or ordered). STATEMENT OF ADEQUACY Specimen submitted is satisfactory. Endocervical component present. CLINICAL INFORMATION HPV Option: Reflex HPV Preparation: Liquid based Pap Specimen Source: Cervical/Endocervi afshin LMP: 01/12/16 Hormones?: No Hysterectomy?: No ?: No ?: No I.U.D.?: No Pelvic Radiation: No Prior BOBBIN HAULER Therapy?: No Hist Abnl Pap/Biopsy?: No Hist of HPV Vaccine?: Yes Hist of Smoking?: No Hist of LUCRETIA exposure?: No ICD Diagnosis: Z12.4 Encounter for screening for malignant neoplasm of cervix Clinical Data, Significant Therapy and Clinical Impression : _ This Pap Test has been evaluated with the assistance of the TCM BerthaPrep Pap Test Imaging System. Note: The Pap test is a screening test for cervical cancer with an inherent false-negative rate dependent upon several variables. For further information please contact the [facility]. Reference: Raymond ANG. Final Inspector Movement Assembly of Pap Smear Results. In: Bryan BS, Bertram HH, ed. The Pap Smear. [place]: Juan, 2002: 71-77. [facility] 02/02/2016 10:4 8 AM EDT us Geraldine Matute MD PATHOLOGY/CYTOLOGY ORDERABLES Final Result [facility] [place] [address] from Last 3 Months or Most Recently Relevant to Health Maintenance Care Teams Inside Tester Relationship Specialty Start Date End Date Geraldine Matute MD [facility] [place] [address] PCP - General Family Medicine 08/02/16
== END 2025-10-16 13:43 | disposition home or self-care (01) ==
LOC: HO.HMCH 12:55
PROVIDERS: PCP Internal Medicine; Visit Provider Internal Medicine
DX: Z76.89 Persons encountering health services in other specified circumstances (principal); G40.909 Epilepsy, unspecified, not intractable, without status epilepticus; Z80.41 Family history of malignant neoplasm of ovary